=== PATIENT | male | born 1950 | race Caucasian/White ===

== ENCOUNTER → 2022-06-12 09:50 | Outpatient (CLI) | payer MEDICARE, OTHER, SELFPAY ==
--- NOTE | ~2022-06-12 | DEXA_ITS ---
Bone Density Report Name: ADRIAN BELL Age: 71 Sex: Male Ethnicity: White Date of : 1950 Indication: screening for osteoporosis; cancer; Referring Provider: MICHELE ABBOTT Study: Bone densitometry was performed. Exam Date: June 12, 2022 Accession number: [id number] Bone Density: Region BMD T-score Z-score Classification AP Spine (L1-L4) 0.992 -0.9 0.0 Normal Femoral Neck (Left) 0.806 -0.9 0.3 Normal Total Hip (Left) 0.908 -0.8 -0.1 Normal Femoral Neck (Right) 0.765 -1.2 0.0 Osteopenia Total Hip (Right) 0.900 -0.9 -0.2 Normal Total Hip Mean 0.904 -0.9 -0.2 Normal World Health Organization criteria for BMD impression classify patients as: Normal (T-score at or above -1.0), Osteopenia (T-score between -1.0 and -2.5), or Osteoporosis (T-score at or below -2.5). Clinical Information Provided by Patient: Is being treated for osteoporosis Has used the following medications: HRT (i.e. estrogen/hormone therapy), [facility] Has the following medical conditions: Cancer Patient maximum height was 67 Drinks caffeinated beverages Impression: The patient has low bone mass, based on the Right Femoral Neck T-score. Discussion: It is important to ask patients whether they are taking their medications and to encourage continued and appropriate compliance with their osteoporosis therapies to reduce fracture risk. It is also important to review their risk factors and encourage appropriate calcium and vitamin D intakes, exercise, fall prevention and other lifestyle measures. Follow-Up: Consider repeating this study in 2 years to reassess this patient's status, or sooner if there is some new clinical indication. Reported by: [facility] on 06/12/2022 10:31:00 AM. Reviewed, dictated and finalized at location [facility]
== END ==
PROVIDERS: PCP Family Medicine
DX: C61 Malignant neoplasm of prostate (principal); Z79.818 Long term (current) use of other agents affecting estrogen receptors and estrogen levels; M85.851 Other specified disorders of bone density and structure, right thigh
CPT/HCPCS: 77080